=== PATIENT | male | born 1970 | race Caucasian/White ===

== ENCOUNTER 2022-08-26 01:15 | Emergency (ER) | payer OTHER ==
[~2022-08-26] VITALS: Ht 177.8 cm; Wt 87.0 kg
[2022-08-26 02:10] VITALS: BP 155/80
== END 2022-08-26 02:10 ==
LOC: ED 01:15
DX: Z02.89 Encounter for other administrative examinations (principal); F22 Delusional disorders; I10 Essential (primary) hypertension; Z20.822 Contact with and (suspected) exposure to COVID-19
CPT/HCPCS: J2060